=== PATIENT | female | born 1990 ===

== ENCOUNTER 2018-02-17 16:26 | Emergency (ER) | payer OTHER ==
[2018-02-17] MEDS ORDERED: TYLENOL ONE (16:32)
[2018-02-17 16:36] VITALS: BP 106/71
[2018-02-17] MEDS ORDERED: TYLENOL PO ONE (16:36)
[2018-02-17 19:25] LABS: Bacteria,Urine 1+ /HPF (Negative); Bilirubin,Urine NEG (Negative); Blood,Urine NEG (Negative); Color,Urine Straw (Yellow); Mucus,Urine FEW /HPF; Protein,Urine <15 mg/dL mg/dL (Negative); Urobilinogen,Urine < 2.0 mg/dL (<2.0); WBC,Urine < 1.0 /HPF (0.0-6.0)
[2018-02-17 19:29] LABS: HCG Qualitative,Urine Negative (Negative)
--- NOTE | 2018-02-17 19:55 | Emergency Department Report ---
ED General Adult HPI - General Chief complaint: Fever Stated complaint: FLU SYMPTOMS Time Seen by Provider: 02/17/18 19:20 Source: patient Mode of arrival: Ambulatory Limitations: No Limitations - History of Present Illness Initial comments: 27-year-old female comes in complaining of body aches so throat since yesterday. Patient reports that she is having lots of cold sweats mild nausea headache and a mild sore throat. She denies any cough and no nasal congestion noted rhinorrhea or dysuria no vaginal discharge no shortness of breathing no chest pain. Patient's last HIV test 6 months ago which was negative. She did try [id number] TheraFlu which she reports did not help. She does admit that taken the Tylenol in triage is help with her body aches. Patient has no past medical history currently takes no medications on a daily basis and has no known drug allergies. -: days(s) (1) Location: lower extremity Severity scale (0 -10): 2 Quality: aching Consistency: constant Improves with: medication (all in all given in triage) Worsens with: none Associated Symptoms: fever/chills, headaches, nausea/vomiting. denies: chest pain, cough, diaphoresis, malaise, rash, shortness of breath, syncope Treatments Prior to Arrival: cold therapy (TheraFlu) - Related Data Previous Rx's Medication Instructions Recorded Last Taken Type Ibuprofen [Motrin 800 MG tab] 800 mg PO Q8HR PRN #30 tablet 02/17/18 Unknown Rx Allergies Allergy/AdvReac Type Severity Reaction Status Date / Time No Known Allergies Allergy Unverified 02/17/18 16:36 ED Review of Systems ROS: Stated complaint: FLU SYMPTOMS Other details as noted in HPI Constitutional: chills, fever (low-grade) Eyes: denies: eye pain, eye discharge, vision change ENT: throat pain (mild intermittent) Respiratory: denies: cough, shortness of breath, wheezing Cardiovascular: denies: chest pain, palpitations Endocrine: excessive sweating Gastrointestinal: denies: abdominal pain, nausea, diarrhea Genitourinary: denies: dysuria Musculoskeletal: back pain (low) Skin: denies: rash, lesions Neurological: headache Psychiatric: denies: anxiety, depression Hematological/Lymphatic: denies: easy bleeding, easy bruising ED Past Medical Hx - Past Medical History Previous Medical History?: No - Surgical History Past Surgical History?: No - Social History Smoking Status: Never Smoker Substance Use Type: Alcohol - Medications Home Medications: Home Medications Medication Instructions Recorded Confirmed Last Taken Type Ibuprofen [Motrin 800 MG tab] 800 mg PO Q8HR PRN #30 tablet 02/17/18 Unknown Rx ED Physical Exam - General Limitations: No Limitations General appearance: alert, in no apparent distress - Head Head exam: Present: atraumatic, normocephalic - Eye Eye exam: Present: normal appearance, EOMI - ENT ENT exam: Present: mucous membranes moist, TM's normal bilaterally, normal external ear exam - Neck Neck exam: Present: full ROM. Absent: tenderness, lymphadenopathy - Respiratory Respiratory exam: Present: normal lung sounds bilaterally. Absent: respiratory distress - Cardiovascular Cardiovascular Exam: Present: regular rate, normal rhythm. Absent: systolic murmur, diastolic murmur, rubs, gallop - GI/Abdominal GI/Abdominal exam: Present: soft, normal bowel sounds. Absent: tenderness - Extremities Exam Extremities exam: Present: normal inspection, full ROM. Absent: tenderness - Back Exam Back exam: Present: normal inspection - Neurological Exam Neurological exam: Present: alert, oriented X3 - Psychiatric Psychiatric exam: Present: normal affect, normal mood - Skin Skin exam: Present: warm, dry, intact, normal color. Absent: rash ED Course Vital Signs 02/17/18 02/17/18 16:30 16:40 Temperature 100.1 F H Pulse Rate 105 H Respiratory 20 18 Rate Blood Pressure 106/71 O2 Sat by Pulse 100 Oximetry ED Medical Decision Making - Medical Decision Making Patient has been evaluated for this provider fast track. Patient had a urinalysis which was negative. Urine test negative. Patient reports that her body aches sore throat and headache has improved with Tylenol that was given in triage. Patient appears to have a viral syndrome. Encourage patient to continue with Tylenol and/or Motrin for fever and pain control. Encourage patient to rest drink plenty of fluids follow up with the primary care provider if symptoms persist or gets worse. Patient does admit to having a sick contact. Critical care attestation.: If time is entered above; I have spent that time in minutes in the direct care of this critically ill patient, excluding procedure time. ED Disposition Clinical Impression: Viral syndrome Disposition: DC- TO HOME OR SELFCARE Is pt being admited?: No Does the pt Need Aspirin: No Condition: Stable Instructions: Viral Syndrome (ED) Additional Instructions: Please is take pain medication as prescribed. If her symptoms persist or gets worse please follow up with her primary care provider. Prescriptions: Ibuprofen [Motrin 800 MG tab] 800 mg PO Q8HR PRN #30 tablet PRN Reason: Pain , Severe (7-10) Referrals: PRIMARY CARE, [Primary Care Provider] - 3-5 Days [facility] [Provider Group] - 3-5 Days Forms: Work/School Release Form(ED)
== END 2018-02-17 20:22 | disposition home or self-care (01) ==
LOC: ED 16:26
DX: B34.9 Viral infection, unspecified (principal)
CPT/HCPCS: 81001; 81025; 99283